=== PATIENT | female | born 1930 | race Caucasian/White ===

== ENCOUNTER 2018-12-18 19:24 | Emergency (ER) | payer MEDICARE ==
--- NOTE | 2018-12-18 20:22 | ERPHSYRPT ---
- History of Present Illness Time Seen by Provider: 12/18/18 20:05 Source: patient, family Exam Limitations: no limitations Patient Subjective Stated Complaint: SWELLING AND SEEPING JONATHAN LE Triage Nursing Assessment: PT TO ER C/O EDEMA TO JONATHAN LE ONSET APPROX 1 WEEKS COOPERATIVE EDUCATION COORDINATOR PT REPROTS CLEAR FLUID SEEPING TO JONATHAN LE SLIGHT REDNESS NOTED WITH 3 PLUS PITTING EDEMA. PT OTHERWISE P/W/D RESP EASY A @OX3 Physician History: 88-year-old white female arrives with complaint of swelling and weeping from her bilateral lower extremity symptoms since December 15. Patient denies any fevers nausea vomiting shortness of breath chest pain no abdominal pain. Patient states she has had the weeping she apparently has not been able to get into the clinic she apparently had a physician down in [facility] that she can no longer access. Past medical history includes CVA, high blood pressure, myocardial infarction, atherosclerotic coronary artery disease Past surgical history includes appendectomy Method of Injury: other (no injury) Occurred: last week (last December 15) Lower Extremities Pain: other: bilateral (no pain, bilateral lower extremities edema erythema and weeping) Modifying Factors: Improves With: nothing Associated Symptoms: none Allergies/Adverse Reactions: acetaminophen [From Tylenol] Adverse Reaction (Verified 12/18/18 20:06) aspirin Adverse Reaction (Verified 12/18/18 20:06) ibuprofen [From Motrin] Adverse Reaction (Verified 12/18/18 20:06) Home Medications: Amlodipine Besylate 10 mg PO DAILY 12/18/18 [History] Metoprolol Tartrate 100 mg PO BID 12/18/18 [History] Pravastatin Sodium 20 mg PO DAILY 12/18/18 [History] Sennosides [Senna] 8.6 mg PO DAILY 12/18/18 [History] - Review of Systems Constitutional: No Fever, No Chills Eyes: No Symptoms Ears, Nose, & Throat: No Symptoms Respiratory: No Cough, No Dyspnea Cardiac: No Chest Pain, No Edema, No Syncope Abdominal/Gastrointestinal: No Abdominal Pain, No Nausea, No Vomiting, No Diarrhea Genitourinary Symptoms: No Dysuria Musculoskeletal: Other (bilateral lower extremities edema, weeping), No Back Pain, No Neck Pain Skin: Other (bilateral lower extremity weeping, edema) Neurological: No Dizziness, No Focal Weakness, No Sensory Changes Psychological: No Symptoms Endocrine: No Symptoms All Other Systems: Reviewed and Negative - Past Medical History Pertinent Past Medical History: Yes Neurological History: Stroke Cardiac History: Coronary Artery Disease Respiratory History: COPD GI Medical History: Gallbladder Disease History: Renal Disease - Past Surgical History Past Surgical History: Yes Cardiac: Cardiac Catheterization Gastrointestinal: Appendectomy Genitourinary: Other Other Surgical History: PROLAPSED UTERUS AND BLADDER, STENT X 2, - Social History Smoking Status: Never smoker - Nursing Vital Signs Nursing Vital Signs: Initial Vital Signs Temperature 98.6 F 12/18/18 19:54 Pulse Rate 73 12/18/18 19:54 Respiratory Rate 16 12/18/18 19:54 Blood Pressure 161/65 12/18/18 19:54 O2 Sat by Pulse Oximetry 96 12/18/18 19:54 Pain Scale Pain Intensity 0 - Physical Exam General Appearance: alert Eyes, Ears, Nose, Throat Exam: moist mucous membranes Neck Exam: non-tender, supple Cardiovascular/Respiratory Exam: chest non-tender, normal breath sounds, regular rate/rhythm, no respiratory distress Gastrointestinal/Abdominal Exam: non-tender, guarding Hips Exam: bilateral: non-tender, normal inspection, normal range of motion, no evidence of injury Legs Exam: bilateral leg: non-tender, normal range of motion, other (bbilateral lower extremities edema (mild) several eschar, several weeping areas feet erythematous (mild) Knees Exam: bilateral knee: non-tender, normal inspection, normal range of motion, no evidence of injury Ankle Exam: bilateral ankle: non-tender, normal range of motion, no evidence of injury, other (erythema distal legs bilaterally mild edema some weeping lesions) Foot Exam: bilateral foot: non-tender, normal range of motion, no evidence of injury, other (mild edema bilateral feet mild erythema bilateral feet) DTR - Lower Extremities Exam: ankle (R): 2+, ankle (L): 2+ Neuro/Tendon Exam: normal sensation, normal motor functions Mental Status Exam: alert Skin Exam: other (bilateral lower extremities mild edema mild erythema) SpO2 Interpretation: normal (96%) SpO2: 96 - Course Nursing assessment & vital signs reviewed: Yes EKG Interpreted by Me: RATE (70 bpm), NORMAL AXIS, Other (EKG: Sinus rhythm, 70 beats per minute, normal axis, nonspecific T wave abnormalities, no old EKG for comparison) - Radiology Ultrasound Exam Venous Lower Extremity Ultrasound: Other (bilateral lower extremity venous Doppler: Discussed with mining engineering technologist: negative for DVT) Ordered Tests: Active Orders 24 hr Category Date Time Status EKG-ER Only STAT Care 12/18/18 20:13 Active IV Insertion STAT Care 12/18/18 20:13 Active CHEST 1 VIEW (PORTABLE) Stat Exams 12/18/18 20:13 Taken VENOUS BILATERAL EXTREMITY [US] Stat Exams 12/18/18 Ordered BLOOD CULTURE Stat Lab 12/18/18 20:35 Received CBC W DIFF Stat Lab 12/18/18 20:25 Completed CMP Stat Lab 12/18/18 20:25 Completed CULTURE,WOUND Stat Lab 12/18/18 21:20 Received D-DIMER QUANTITATION Stat Lab 12/18/18 20:25 Completed NT PRO BNP Stat Lab 12/18/18 20:25 Completed PROTIME WITH INR Stat Lab 12/18/18 20:25 Completed PTT Stat Lab 12/18/18 20:25 Completed TROPONIN Q3H Lab 12/18/18 20:25 Completed TROPONIN Q3H Lab 12/18/18 23:15 Ordered TROPONIN Q3H Lab 12/19/18 02:15 Ordered TROPONIN Q3H Lab 12/19/18 05:15 Ordered TROPONIN Q3H Lab 12/19/18 08:15 Ordered UA W/RFX UR CULTURE Stat Lab 12/18/18 20:15 Completed Medication Summary Generic Name Dose Route Start Last Admin Trade Name Freq PRN Reason Stop Dose Admin Furosemide 20 mg 12/18/18 23:00 Lasix 20 Mg PO 12/18/18 23:01 ONCE STA Ceftriaxone Sodium/Dextrose 1 g in 50 mls @ 100 mls/hr 12/18/18 22:58 Rocephin 1 Gm-D5w 50 Ml Bag IV 12/18/18 23:27 STAT STA Lab/Rad Data: Laboratory Result Diagrams 12/18/18 20:25 12/18/18 20:25 Laboratory Results 12/18/18 12/18/18 12/18/18 Range/Units 20:25 20:25 20:25 WBC (4.0-10.5) K/mm3 RBC (4.1-5.4) M/mm3 Hgb (12.0-16.0) gm/dl Hct (35-47) % MCV (78-100) fl MCH (26-32) pg MCHC (32-36) g/dl RDW (11.5-14.0) % Plt Count (150-450) K/mm3 MPV (6-9.5) fl Gran % (36.0-66.0) % Eos # (Auto) (0-0.5) Absolute Lymphs (auto) (1.0-4.6) Absolute Monos (auto) (0.0-1.3) Lymphocytes % (24.0-44.0) % Monocytes % (0.0-12.0) % Eosinophils % (0.00-5.0) % Basophils % (0.0-0.4) % Absolute Granulocytes (1.4-6.9) Basophils # (0-0.4) PT 11.8 (9.95-12.35) SECONDS INR 1.04 (0.8-3.0) APTT 33.7 (25.3-37.0) SECONDS D-Dimer 915 H* (215-500) ng/mL Sodium (137-145) mmol/L Potassium (3.5-5.1) mmol/L Chloride (98-107) mmol/L Carbon Dioxide (22-30) mmol/L Anion Gap (5-15) MEQ/L BUN (7-17) mg/dL Creatinine (0.52-1.04) mg/dL Estimated GFR ML/MIN Glucose (74-106) mg/dL Calcium (8.4-10.2) mg/dL Total Bilirubin (0.2-1.3) mg/dL AST (14-36) U/L ALT (0-35) U/L Alkaline Phosphatase (38-126) U/L Troponin I < 0.012 (0.000-0.034) ng/mL NT-Pro-B Natriuret Pep 2090 H (0-1800) pg/mL Serum Total Protein (6.3-8.2) g/dL Albumin (3.5-5.0) g/dL Urine Color (YELLOW) Urine Appearance (CLEAR) Urine pH (5-6) Ur Specific [place] (1.005-1.025) Urine Protein (Negative) Urine Ketones (NEGATIVE) Urine Blood (0-5) Nirmal/ul Urine Nitrite (NEGATIVE) Urine Bilirubin (NEGATIVE) Urine Urobilinogen (0-1) mg/dL Ur Leukocyte Esterase (NEGATIVE) Urine WBC (Auto) (0-5) /HPF Urine RBC (Auto) (0-2) /HPF U Epithel Cells (Auto) (FEW) /HPF Urine Mucus (Auto) (NEGATIVE) /HPF Urine Culture Reflexed (NO) Urine Glucose (NEGATIVE) mg/dL 12/18/18 12/18/18 12/18/18 Range/Units 20:25 20:25 20:15 WBC 4.1 (4.0-10.5) K/mm3 RBC 3.34 L (4.1-5.4) M/mm3 Hgb 10.7 L (12.0-16.0) gm/dl Hct 33.2 L (35-47) % MCV 99.4 (78-100) fl MCH 32.0 (26-32) pg MCHC 32.2 (32-36) g/dl RDW 13.9 (11.5-14.0) % Plt Count 270 (150-450) K/mm3 MPV 9.8 H (6-9.5) fl Gran % 56.9 (36.0-66.0) % Eos # (Auto) 0.14 (0-0.5) Absolute Lymphs (auto) 0.92 L (1.0-4.6) Absolute Monos (auto) 0.64 (0.0-1.3) Lymphocytes % 22.3 L (24.0-44.0) % Monocytes % 15.5 H (0.0-12.0) % Eosinophils % 3.4 (0.00-5.0) % Basophils % 1.9 (0.0-0.4) % Absolute Granulocytes 2.34 (1.4-6.9) Basophils # 0.08 (0-0.4) PT (9.95-12.35) SECONDS INR (0.8-3.0) APTT (25.3-37.0) SECONDS D-Dimer (215-500) ng/mL Sodium 138 (137-145) mmol/L Potassium 5.0 (3.5-5.1) mmol/L Chloride 105 (98-107) mmol/L Carbon Dioxide 28 (22-30) mmol/L Anion Gap 10.9 (5-15) MEQ/L BUN 55 H (7-17) mg/dL Creatinine 1.90 H (0.52-1.04) mg/dL Estimated GFR 26.5 ML/MIN Glucose 93 (74-106) mg/dL Calcium 8.8 (8.4-10.2) mg/dL Total Bilirubin 0.40 (0.2-1.3) mg/dL AST 22 (14-36) U/L ALT 13 (0-35) U/L Alkaline Phosphatase 73 (38-126) U/L Troponin I (0.000-0.034) ng/mL NT-Pro-B Natriuret Pep (0-1800) pg/mL Serum Total Protein 7.3 (6.3-8.2) g/dL Albumin 3.9 (3.5-5.0) g/dL Urine Color YELLOW (YELLOW) Urine Appearance CLEAR (CLEAR) Urine pH 6.0 (5-6) Ur Specific [place] 1.014 (1.005-1.025) Urine Protein 100 (Negative) Urine Ketones NEGATIVE (NEGATIVE) Urine Blood NEGATIVE (0-5) Nirmal/ul Urine Nitrite NEGATIVE (NEGATIVE) Urine Bilirubin NEGATIVE (NEGATIVE) Urine Urobilinogen NEGATIVE (0-1) mg/dL Ur Leukocyte Esterase NEGATIVE (NEGATIVE) Urine WBC (Auto) NONE (0-5) /HPF Urine RBC (Auto) NONE (0-2) /HPF U Epithel Cells (Auto) NONE (FEW) /HPF Urine Mucus (Auto) SLIGHT (NEGATIVE) /HPF Urine Culture Reflexed NO (NO) Urine Glucose NEGATIVE (NEGATIVE) mg/dL - Progress Progress: improved Progress Note: 12/18/18 20:20 This is a 88-year-old white female with history of CVA, high blood pressure, atherosclerotic coronary artery disease. Patient arrives with complaint of weeping to her lower extremities bilaterally left greater than right symptoms going on for approximately 3 days she states she has not had any fevers. She does have some chronic edema to her lower extremities she does have mild edema to bilateral feet and lower legs she has some eschars on her lower legs left greater than right she has some areas of weeping in the lower legs. Patient apparently has some chronic swelling of her lower extremity she states that this is improved in the past with the elevation of her leg. Patient has no shortness of breath no chest pain no fevers. Will go ahead and obtain CBC CMP blood culture wound culture d-dimer troponin and EKG. 12/18/18 23:02 I've discussed the patient's case with Dr. hamilton, patient apparently is planning on trying to get into see Dr. hamilton. Patient appears to be stable she does have some edema in her lower extremities some mild weeping. And some mild erythema. She is wanting to go home her vitals are stable. Patient's EKG sinus rhythm 70 beats per minute normal axis nonspecific T wave abnormalities no EKG for comparison Patient's CBC white blood cell 4.1 hemoglobin 10.7 hematocrit 33.2 platelets 270 patient's troponin within normal limits patient's chemistry sodium 138 potassium 5.0 chloride 105 bicarbonate 28 BUN 55 creatinine 1.9 glucose 93 Urinalysis is unremarkable BNP 2090 slightly elevated Chest x-ray no acute disease process noted D-dimer was elevated at 9:15 venous Doppler bilateral lower extremities negative for DVT I will give patient one dose of oral Lasix, I do not want to give her more than this. Will give patient Rocephin 1 g IV. Plan home on Keflex 500 mg orally every 6 hours x7 days. Patient to call Dr. Clark's office tomorrow to arrange followup. Impression 1 peripheral edema. 2. Lower extremity cellulitis. - Departure Departure Disposition: Home Clinical Impression: Peripheral edema Lower extremity cellulitis Qualifiers: Laterality: unspecified laterality Qualified Code(s): L03.119 - Cellulitis of unspecified part of limb Condition: Fair Critical Care Time: No Referrals: MONICA WILLIAMSON MD [Emergency Provider] - Instructions: Peripheral Edema -- Bilateral Additional Instructions: Return home. Elevate legs. Keflex as prescribed. Followup with Dr. hamilton tomorrow call office to arrange followup. Return for acute distress severe symptoms or for any problems. Prescriptions: Cephalexin Mh 500 mg [Keflex 500 mg] 500 mg PO Q6H #28 capsule
[2018-12-18 20:26] LABS: Appearance CLEAR (CLEAR); Bilirubin NEGATIVE (NEGATIVE); Blood NEGATIVE Ery/ul (0-5); Glucose NEGATIVE (NEGATIVE); Ketones NEGATIVE (NEGATIVE); Leukocyte Esterase NEGATIVE (NEGATIVE); Mucus SLIGHT /HPF (NEGATIVE); Nitrite NEGATIVE (NEGATIVE); Protein,Urine Dip 100 (Negative); Specific Gravity 1.014 (1.005-1.025); Urobilinogen NEGATIVE mg/dL (0-1)
[2018-12-18 20:45] LABS: BASOPHIL % 1.9 % (0.0-0.4); Basophil (Absolute #) 0.08 (0-0.4); Eosinophil % 3.4 % (0.00-5.0); Eosinophil (Absolute #) 0.14 (0-0.5); Granulocyte Absolute (ANC) 2.34 (1.4-6.9); Granulocytes % 56.9 % (36.0-66.0); Hematocrit 33.2 % (35-47); Hemoglobin 10.7 gm/dl (12.0-16.0); Lymphocyte (Absolute #) 0.92 (1.0-4.6); Lymphocytes % 22.3 % (24.0-44.0); Mean Cell Volume 99.4 fl (78-100); Mean Corpuscular Hgb Concent. 32.2 g/dl (32-36); Mean Platelet Volume 9.8 fl (6-9.5); Monocyte (Absolute #) 0.64 (0.0-1.3); Monocytes % 15.5 % (0.0-12.0); Platelet Count 270 K/mm3 (150-450); Red Blood Count 3.34 M/mm3 (4.1-5.4); Red Cell Distribution Width 13.9 % (11.5-14.0); White Blood Count 4.1 K/mm3 (4.0-10.5)
[2018-12-18 20:51] LABS: INR 1.04 (0.8-3.0); PROTIME 11.8 SECONDS (9.95-12.35)
[2018-12-18 20:54] LABS: PTT 33.7 SECONDS (25.3-37.0)
[2018-12-18 20:57] LABS: ALBUMIN 3.9 g/dL (3.5-5.0); ANION GAP 10.9 MEQ/L (5-15); BILIRUBIN,TOTAL 0.4 mg/dL (0.2-1.3); Calcium 8.8 mg/dL (8.4-10.2); Creatinine 1 1.9 mg/dL (0.52-1.04); Total Protein 7.3 g/dL (6.3-8.2)
[2018-12-18] MEDS ORDERED: ROCEPHIN 1 Gm-D5w 50 ml Bag** 1 G/50 ML IVPB IV STA (22:58)
[2018-12-18] MEDS ORDERED: LASIX 20 MG PO STA (23:00)
[2018-12-18] MEDS ORDERED: ROCEPHIN 1 Gm-D5w 50 ml Bag** 1 G/50 ML IVPB IV ONE (23:03)
[2018-12-18] MEDS ORDERED: BACIGUENT PACKET TP ONE (23:07)
[2018-12-19 00:05] VITALS: BP 167/82; PULSE 83; O2SAT 94
[2018-12-19] MEDS ORDERED: BACIGUENT PACKET ONE (00:05)
--- NOTE | 2018-12-19 08:47 | XRAY ---
Indication: Bilateral lower extremity edema/weeping. Elevated d-dimer. Renal disease. Comparison: None Portable chest demonstrates calcified granulomas. No focal infiltrate, consolidation, or large effusion. Heart is not enlarged for AP portable technique. Bony thorax intact with mild osteopenia and degenerative changes. Impression: Nonacute chest with chronic features.
--- NOTE | 2018-12-19 08:49 | XRAY ---
Indication: Bilateral leg swelling. Two-dimensional sonogram and color Doppler imaging of the major venous vessels of the left and right leg was performed. Comparison: None No thrombus seen in the examined deep venous vessels of the left and right leg including greater saphenous vein. Veins demonstrate normal compressibility. Venous waveforms are normal with and without augmentation. Impression: Left and right legs negative for DVT. Comment: Preliminary report was given.
== END 2018-12-19 00:15 | disposition home or self-care (01) ==
LOC: ED 19:24
DX: L03.119 Cellulitis of unspecified part of limb (principal); R60.0 Localized edema; R06.02 Shortness of breath; I25.10 Atherosclerotic heart disease of native coronary artery without angina pectoris
CPT/HCPCS: 36000; 36415; 71045; 80053; 81001; 83880; 84484; 85025; 85379; 85610; 85730; 87040; 87070; 87077; 87186; 93005; 93970; 96365; 96374; 99284; J0696; A9270-GY